=== PATIENT | female | born 1970 | race Caucasian/White ===

== ENCOUNTER → 2019-11-17 10:25 | Outpatient (CLI) | payer OTHER, SELFPAY ==
[2019-11-18 07:38] LABS: COVID19 Sendout Not Detected (Not Detect)
== END ==
PROVIDERS: PCP Specialist; Visit Provider Physician Assistant
DX: Z11.59 Encounter for screening for other viral diseases (principal)
CPT/HCPCS: 87635

== ENCOUNTER 2019-11-20 12:25 | Inpatient (IN) | payer OTHER, SELFPAY ==
[2019-11-12 11:49] VITALS: BMI 40.9
[2019-11-20] VITALS (15 sets, daily range): BP systolic 114–160; BP diastolic 53–93; PULSE 71–94; RESP 13–23; TEMP 36.1–36.4; O2SAT 86–99; BMI 40.9
--- NOTE | 2019-11-20 | PATH_ITS ---
[facility] Accession Number: [id number] . 01 Material submitted: . uterus - UTERUS, BILATERAL FALLOPIAN TUBES, L OVARY . 02 Diagnosis: Uterus, Bilateral Fallopian Tubes, Left Ovary, Abdominal Supracervical Hysterectomy, Bilateral Salpingectomy, and Left Oophorectomy (Morcellated Specimen, Weight 1383 grams): Proliferative endometrium; negative for glandular hyperplasia, cytologic atypia, or malignancy. Lower uterine segment with active inflammation and multiple benign Nabothian gland cysts; negative for glandular hyperplasia, cytologic atypia, or malignancy. Myometrium with multiple intramural leiomyomas (0.1-6.5 cm in greatest dimension); negative for cytologic atypia, increased mitotic activity, or necrosis. Uterine serosa with nonspecific adhesions. Attached fallopian tube (presumed left) with multiple benign paratubal cysts (1-5 mm in greatest dimension). Left ovary with a benign mature cystic teratoma / benign dermoid cyst (5.0 x 4.0 x 3.5 cm). Detached fallopian tube (presumed right) with no significant histomorphologic abnormality. [facility] 11/26/2019 1359 Local . 02 Electronically signed: . Matilda Coleman MD, Pathologist NPI- [id number] . 01 Gross description: . Received in formalin, labeled uterus, bilateral fallopian tubes, left ovary, and consists of a 1383 gram, supracervically resected uterus with attached left ovary and fallopian tube. The specimen measures 24 cm from superior fundus to lower uterine segment by 14.0 cm from cornu to cornu by 12.0 cm from anterior to posterior. The serosa is winter-pink and smooth. The specimen is bivalved to reveal a winter-pink herringbone endocervical mucosa with multiple cysts ranging from 0.1 to 0.3 cm. The endometrial cavity measures 6.0 x 0.3 cm and displays a winter-pink glistening endometrium measuring 0.1 cm in thickness. The myometrium is winter-pink and trabeculated, measuring up to 7.5 cm in thickness. There are multiple winter-white whorled leiomyomata ranging from 0.1 to 6.5 cm. There are focal areas of necrosis; however, no areas of hemorrhage or cystic degeneration. The left fallopian tube measures 4.0 cm in length by 0.5 cm in diameter and displays a pink-purple smooth serosa with multiple paratubal cysts ranging from 0.1 to 0.5 cm. Sectioning reveals a winter mucosa and a stellate lumen measuring 0.2 cm in diameter. The left ovary measures 6.0 x 5.0 x 4.5 cm. The external surface is winter and smooth. Sectioning reveals a 5.0 x 4.0 x 3.5 cm winter-pink smooth-walled cyst with no papillary excrescences. The cyst contains winter keratinaceous material. Remaining ovarian stroma is winter-pink with corpora albicantia. Also received is a detached fallopian tube measuring 4.5 cm in length by 0.5 cm in diameter with a winter-pink smooth serosa. Sectioning reveals a winter mucosa and a stellate lumen measuring 0.2 cm in diameter. Quality Controller sections are submitted. . A1: anterior lower uterine segment. A2: posterior lower uterine segment. A3: maintenance representative anterior endomyometrium. A4: maintenance representative posterior endomyometrium. A5-A10: maintenance representative leiomyomata. A11-A14: maintenance representative left ovarian cyst and ovarian parenchyma. A15: maintenance representative left fallopian tube, cross-sections and bisected fimbria. A16: maintenance representative right fallopian tube (detached) with central cross-sections and bisected fimbria. (EA:[id number]) /MRV 11/25/[address] [place] [address] . 02 Pathologist provided ICD-10: D25.9, D27.1 . 02 CPT . 862734 Performed at: 01 [facility] [address] [facility] [place], [place], [place] [id number] MD El Valdes MD Phone: [phone] Performed at: 02 [facility] [place] [address] [place] [id number] MD Leonor Ortiz MD Phone: [phone]
[2019-11-20] MEDS: LACTATED RINGERS 1,000 ML 42 ML IV (13:01)
[2019-11-20] MEDS: SCOPOLAMINE 1 PATCH TOP (13:04)
[2019-11-20] MEDS: ACETAMINOPHEN 325 MG TABLET 975 MG PO (13:04)
--- NOTE | 2019-11-20 13:31 | PM.PREOP ---
Pre-operative Note COVID-19 COVID-19 status: Negative Result date/Date tested (Pos, Neg/Pending): 11/17/19 Interval Note History & Physical reviewed/Exam performed by Physician: Yes Changes to H&P: No
[2019-11-20] MEDS: CEFAZOLIN VIAL 3 GM in SODIUM CHLORIDE 0.9% 100 ML 200 ML IV (13:33)
--- NOTE | 2019-11-20 14:19 | SUR.OPER ---
Lithotomy on padded OR bed, head on pillow, arms secured on padded arm boards at <90 degrees abduction. Legs secured in padded yellow fins stirrups.
[2019-11-20] MEDS: fentaNYL 100 MCG/2 ML INJ IV ×4 (16:15→16:40)
--- NOTE | 2019-11-20 16:16 | P.OP_ITS ---
Operative Date/Time/Diagnoses Date of procedure: 11/20/19 Time of procedure: 16:16 Pre-op diagnosis: Menorrhagia from large uterine fibroids, urinary incontinence Post-op diagnosis: same Procedure & Clinicians Procedure: Abdominal supracervical hysterectomy with right salpingectomy and left salpingo oophorectomy, Nunez bladder suspention Same procedure as scheduled: Yes Indications: Menorrhagia a from large uterine fibroids and stress urinary incontinence Surgeon: Ashly Swenson Jacquard Plate Maker: Sirisha Edwarsd Click Yes if Unassisted: No Anesthesia Type: General Operative Notes Findings: Large uterine fibroids, enlarged left ovary, normal appendix, normal bowel surface, normal palpable upper abdomen, hypermobile urethra with first- degree cystocele Closure Type: primary Specimen(s): other (Uterus above the level of the bladder, right fallopian tube, left tube and ovary) Applied: catheter (Manrique) Estimated Blood Loss (mL): 400 Blood products transfused: none Procedure in detail: Patient was brought to the operating room where she underwent general anesthesia and was placed in [facility] in a supine position. She was prepped and draped in the usual sterile fashion. Patient had warming with Jose Hugger, 3 g of Ancef were in prior to beginning the case. Pulsatile stockings were in place and functional. A Manrique catheter was placed. A check system was reviewed with the staff in the room prior to beginning the case. A vertical skin incision was made from the pubic symphysis to just below the umbilicus. The incision was carried down to the fascial layer with the Bovie. Bleeding was controlled with Bovie. The fascia was incised with the scalpel all. The rectus muscles were in the midline and the peritoneum was entered sharply with no damage to internal structures. The peritoneal incision was extended superiorly and inferiorly. The large Reynold retractor was placed. The LigaSure was used to cauterize and cut the right needs a salpinx along removal of the right tube. The utero-ovarian ligament and round ligaments were cauterized and cut. Sequential bites were taken down the broad ligament hugging the uterus. The infundibulopelvic ligament was cauter ized and cut. Sequential bites taken of the broad ligament hugging the ovary. Bites were taken down the broad ligament unti the uterine artery was cauterized and cut. Bladder flap was developed anteriorly by incising the perineum. The bladder was pushed away from the cervix. Bovie was used to amputate the uterus at the level of the internal cervical os. Bleeding was controlled with 0 Vicryl suture. The Bovie was used to cauterize in the endocervical canal. Adequate hemostasis was noted. The fascia of the cervix was sutured front to back with [id number] 0 Vicryl sutures. The abdomen was irrigated. Adequate hemostasis was noted. The perineum was repaired with 3 0 Vicryl suture. Dissection was undertaken in the retropubic space identifying the Rigo's ligaments on both sides. The bladder was filled with 200 cc of methylene blue in stained saline. With the all around gear machine operator's hands in the vagina 0 Prolene sutures were placed lateral to the urethral vesical junction, two on each side approximately 1 cm per. There was no release of stained saline confirming the sutures were not placed in the bladder. The sutures were placed through the Rigo's ligament on each side approximately 1 cm apart. The sutures were tied to support the urethra without undue pressure. Adequate hemostasis was noted. #1 looped Maxon was used to close the fascial layer in a running suture from the umbilicus down. The incision was irrigated and the adipose layer was closed with 3 0 Vicryl interrupted sutures. Skin was closed with 4 0 Vicryl suture in a running stitch. Steri-Strips were placed followed by an Aquacel bandage. Patient went to the recovery room in good condition. Counts of instruments and sponges were correct. Complications: none Post-operative Condition: stable Disposition: Acute Care Plan for aftercare: Routine post hysterectomy. Monitor for bleeding. Advanced diet as tolerated.
[2019-11-20] MEDS: LORazepam 2 MG/ML INJ 0.5 MG IV (16:54)
--- NOTE | 2019-11-20 17:00 | SUR.PHASEI ---
Dr. Swenson notified patient c/o rectal pain, Lorazepam ordered and given.
--- NOTE | 2019-11-20 17:10 | SUR.PHASEI ---
report called to Joan. Scant shadow drainage to abdominal dressing
--- NOTE | 2019-11-20 17:36 | SUR.PHASEI ---
Patient transferred to the floor on 2L o2, with belongings bags x2. IV saline locked. Scant shadow drainage to abd dressing. Michelle-pad CDI. VS stable. Report given to DEV Franco.
[2019-11-20] MEDS: LACTATED RINGERS 1,000 ML 100 ML IV ×2 (18:16→20:23)
[2019-11-20] MEDS: DOCUSATE 250 MG CAPSULE PO (20:20)
[2019-11-20] MEDS: OXYCODONE IR 10 MG TABLET PO ×2 (20:20→23:39)
--- NOTE | 2019-11-20 23:28 | PC.NURSE ---
admit/evening shift note- Patient arrived to room via bed from PACU at 1720. PAtient alert and oreinted and able to makie needs known to staff. admit questions done, medications list reviewed, physical assessment and skin check completed. patient oriented to bed and bed controls, room, lights, phone,menu, and call schwartz/tv remote. abdominal midline line dressing with scant shadow drainage noted. Patient using blanket to gaurd abdomin. PRN Oxycodone given for complaints of pain at 7/10. soe1ajez tolerated with positve results reported. Manrique in patent and set to gravity to drain. safety measures in place. Patient agress to call for assistance. Call schwartz and phone within reach. will continue to monitor.
[2019-11-21] VITALS (12 sets, daily range): BP systolic 100–140; BP diastolic 67–88; PULSE 68–91; RESP 15–19; TEMP 36.1–37.2; O2SAT 86–97
[2019-11-21] MEDS: LACTATED RINGERS 1,000 ML 100 ML IV (04:40)
[2019-11-21 05:11] LABS: Basophils Absolute Auto 0 /uL (0-100); Basophils Percent Auto 0.3 % (0-2); Eosinophils Absolute Auto 0 /uL (0-450); Hematocrit 32.5 % (36-46); Hemoglobin 10.2 g/dL (12.0-16.0); Lymphocytes Absolute Auto 1100 /uL (1100-4500); Lymphocytes Percent Auto 7.2 % (25-40); Mean Corpuscular HGB Conc 31.3 % (30-36); Mean Corpuscular Hemoglobin 25.7 PG (26-34); Mean Corpuscular Volume 82.2 fL (80-100); Monocytes Absolute Auto 800 /uL (0-900); Monocytes Percent Auto 5.6 % (3-14); Neutrophils Absolute Auto 12700 /uL (1500-7000); Neutrophils Percent Auto 86.9 % (50-75); Platelet Count 396 X10^3/uL (150-400); Red Blood Cell Count 3.96 X10^6/uL (4.0-5.2); White Blood Cell Count 14.6 X10^3/uL (4.5-11.0)
[2019-11-21 05:12] LABS: Add Manual Diff / Slide Review SLIDE REVIEW
[2019-11-21] MEDS: LEVOTHYROXINE 100 MCG TABLET PO (05:13)
[2019-11-21 05:27] LABS: Anisocytosis 2+
--- NOTE | 2019-11-21 05:49 | PC.NURSE ---
Addendum entered by Dixie Mandujano R.N. 11/21/19 05:54: Patient continues to use ice pack to abdomen for pain relief as well. Original Note: weight shifter note: Patient able to sleep well throughout shift. Patient with midline abdominal incision, remains dry, intact with small spot distally of sanguineous drainage. Patient placed on 2L NC throughout the shift due to slight desaturation (86% on RA, up to 97% on 2L, then titrated down to 1L NC). Patient requesting 1 dose of PRN Percolone for pain at 2339. Manrique cath remains in place with great urine output. Patient able to reposition independently in bed, and currently is resting in bed with no distress noted. IV fluids remain running.
[2019-11-21] MEDS: DOCUSATE 250 MG CAPSULE PO ×2 (07:43→20:59)
[2019-11-21] MEDS: CHLORTHALIDONE 25 MG TABLET 50 MG PO (07:44)
[2019-11-21] MEDS: KETOROLAC 30 MG/ML VIAL IV ×3 (07:44→20:59)
--- NOTE | 2019-11-21 09:32 | PM.PN.1 ---
Subjective Subjective Date Patient Seen: 11/21/19 Time Patient Seen: 09:33 Interval history: Postoperative day 1 Abdominal supracervical hysterectomy with bladder suspension. Patient feels that she is doing very well. Pain is under control. She ambulated in the hallway today. No nausea. She has not passed gas yet. Exam Vital Signs (past 8 hours): - 11/21/19 02:18 11/21/19 02:20 11/21/19 04:53 Temperature 97 F L Pulse Rate 91 H Respiratory Rate 15 Blood Pressure 137/83 Pulse Oximetry 86 L 96 97 11/21/19 07:00 11/21/19 08:00 Temperature 98.7 F Pulse Rate 75 Respiratory Rate 19 Blood Pressure 133/82 Pulse Oximetry 97 97 Oxygen Delivery Method Room Air Oxygen Flow Rate 0 Narrative Exam Narrative: Patient's abdomen is soft, nontender. Dressing is clean, dry, intact. Extremities without edema and nontender. Objective Labs Result Diagrams: 11/21/19 04:50 Labs: Laboratory Results - last 24 hr 11/21/19 04:50 WBC 14.6 H RBC 3.96 L Hgb 10.2 L Hct 32.5 L MCV 82.2 MCH 25.7 L MCHC 31.3 RDW 20.0 H Plt Count 396 Neut % (Auto) 86.9 H Lymph % (Auto) 7.2 L [place] % (Auto) 5.6 Eos % (Auto) 0.0 L Baso % (Auto) 0.3 Neut # (Auto) 48737 H Lymph # (Auto) 1100 [place] # (Auto) 800 Eos # (Auto) 0 Baso # (Auto) 0 RBC Morphology See below Anisocytosis 2+ H Assessment & Plan Assessment and plan (1) History of Nunez colposuspension: Status: Acute (2) Status post abdominal supracervical subtotal hysterectomy: Status: Acute Assessment & Plan narrative: Will remove Manrique catheter and check for postvoid residual. Continue ambulation. Will evaluate for discharge later today. Quality VTE Deep Vein Thrombosis/Pulmonary Embolism Present on Admission: No
--- NOTE | 2019-11-21 12:40 | CM.DANOTE ---
Discharge Planning/Care Management DCP: assessment: case received, EMR reviewed and met with pt. Introduced self and role. Pt is a 49 year old female who admitted yesterday for a scheduled gynecological procedure: Hysterectomy with bladder suspension. Payer: Derick KENYON Surgeon: Dr. Kori Swenson PCP: DR. Ja Jenkins: [facility] Pt has been mobilizing in the [place]. Dr. Swenson stated she would be checking in on pt again later today and that she MAY be able to d/c if she is doing well. Pt confirms that she lives with her dougie Florian and he will be picking her up at d/c. Will follow prn. Anticipate home as above when stable for same. CM Discharge Assessment Start: 11/21/19 12:39 Freq: Status: Active Protocol: Document 11/21/19 12:39 ITV (Rec: 11/21/19 12:40 ITV [id number]) Discharge Planning Assessment Advance Directives? No Advance Directives on File No History Provided By Patient,Medical Record Prior Living Arrangements Mobile home Household Members significant other Comment Anival/dougie Independent with ADL's Yes Is patient alert and oriented? Yes Review Status In Process Pre-Anesthesia Assessment Start: 11/12/19 11:49 Freq: Status: Complete Protocol: Document 11/12/19 11:49 CAB (Rec: 11/12/19 12:36 CAB [id number]) Pre-Anesthesia Assessment Preferred Name Prisca or Elin Patient Information Reviewed Via Phone Assessment Assessment Completed With Patient Comment COVID screen @ 11/17/19 Primary Care Provider Ja Jenkins Seen Specialist in Last 12 Months Yes Specialist Seen Stone Driller Primary Language Latvian Radio Antenna Installer Required No Height 165.1 cm Weight 111.584 kg Body Mass Index (BMI) 40.9 Hearing Ability Normal Visual Impairment No Limitations Visual Assist None Dentition Type Teeth, Natural Present,Teeth, Broken,Teeth, Missing Barriers to Learning Emotional Other Aids No Hx Anesthesia Reactions No: Only surgery was at 8 months of age Hx Family Anesthesia Reaction No Hx Malignant Hyperthermia No Hx Blood Transfusions No Anesthesia Review Requested No alcohol intake current alcohol intake frequency holidays/special occasions only Smoking Status Former smoker Tobacco type cigarettes how long ago did patient quit smoking Quit 2016 Substance Use Type does not use Pain Present Pain Reported Comment Right hip, lower back Musculoskeletal Symptoms Abnormal Gait,Back Pain, Difficulty Walking,Joint Pain, Muscle Weakness History of Falling (Recent or History of Yes ) Patient is completely paralyzed or No completely immobile Mental Status Oriented to own ability Is patient on oxygen? No Does patient have MON/SOB Yes: With anemia Hx Sleep Apnea No Currently Taking a Beta Ambreen No Can You Climb a Flight of Stairs Without Yes SOB Hx Chest Pain Yes: Associated with panic attacks Hx SOB Yes: With anemia Hx Syncope or Dizziness Yes: Dizziness w/anemia Anti-Coagulant Therapy No Has a Congressional Aide No Cardiac Testing No Hx Pacemaker/ICD No Pacemaker Rep Required? No Cardiac Clearance Received Not Applicable Diet Type At Home Regular dysphagia No Gastrointestinal Symptoms Constipation Bladder Pattern Frequency,Incontinent,Urgency Urinary Catheter Present No Hx Urinary Self Catheterization No Diabetes No Patient No Lactating No Hx Drug Resistant Organism No Presence of External or Internal Medical No Devices Have you had any close contact with No someone diagnosed with COVID-19? Marital Status Lives With significant other Prior Living Arrangements Mobile home Support System Significant Other Does the Patient Have Assistance After Yes Surgery Patient Discharge Plan Description Return Home Comment Pt advised 3 day length of stay per surgeon Feels Safe in Current Environment Yes Been Physically Hurt or Threatened By a No Person in Current Environment Do you have thoughts of harming yourself None or others? Are you currently considering suicide? No Do you have a plan to hurt yourself or No Plan others? Do You Have Any Spiritual Beliefs That No May Affect Your HC Choices? Do You Have Any Cultural Practices That No May Affect Your HC Choices? Comment Sabianist Who Can We Speak to About Patient's Care Family, friends Identifying Code for Release of Patient Declines to issue Information Health Care Proxy/Next of Kin Anival (S.O.) Health Care Proxy or [phone] Emergency Contact Name Anival (S.O.) Emergency Contact or [phone] Advance Directives? No Power of Multi Share Program Coordinator No PAC Instructions Do not shave/clip surgical site,No ETOH/petroleum product on skin DOS,NPO,Pre-surgical wash,Sturdy shoes/comfortable clothes,Do not bring valuables and remove jewelry
[2019-11-21] MEDS: OXYCODONE IR 10 MG TABLET PO (13:12)
--- NOTE | 2019-11-21 13:28 | PC.NURSE ---
Addendum entered by Renee Sandoval R.N. 11/21/19 15:18: DR MADDEN NOTIFIED HAD 500CC'S VOID WITH 10CC'S PVR . OKAY TO SL IV. Original Note: YA DC'D AT 0945. 250CC'S URINE EMPTIED FROM YA PRIOR TO DC. PAIN WELL CONTROLLED W/ TORADOL THIS AM, AND NOW WITH OXYCODONE TORADOL NOT YET DUE. FACE FLUSHED. PATIENT REPORTS FLUSHED FREQ AT HOME, NOT PAINFUL. DR. MADDEN NOTIFIED OF PVR 196 AFTER 150CC VOID AND SOME URINE THAT MISSED THE HAT. DR. MADDEN WOULD LIKE US TO CONTINUE TO MONITOR VOIDING PATTERN AND POST-VOID RESIDUAL.
--- NOTE | 2019-11-21 15:08 | P.PN_ITS ---
Subjective Subjective Date Patient Seen: 11/21/19 Time Patient Seen: 15:08 Interval history: Patient is postoperative day number 1. She is ambulatory. She passed her bladder trial. She does not have good return of bowel function yet. She denies nausea. Exam Vital Signs (past 8 hours): - 11/21/19 08:00 11/21/19 12:00 Temperature 98.7 F 98.8 F Pulse Rate 75 76 Respiratory Rate 19 15 Blood Pressure 133/82 132/75 Pulse Oximetry 97 96 Oxygen Delivery Method Room Air Oxygen Flow Rate 0 Objective Labs Result Diagrams: 11/21/19 04:50 Labs: Laboratory Results - last 24 hr 11/21/19 04:50 WBC 14.6 H RBC 3.96 L Hgb 10.2 L Hct 32.5 L MCV 82.2 MCH 25.7 L MCHC 31.3 RDW 20.0 H Plt Count 396 Neut % (Auto) 86.9 H Lymph % (Auto) 7.2 L [place] % (Auto) 5.6 Eos % (Auto) 0.0 L Baso % (Auto) 0.3 Neut # (Auto) 98216 H Lymph # (Auto) 1100 [place] # (Auto) 800 Eos # (Auto) 0 Baso # (Auto) 0 RBC Morphology See below Anisocytosis 2+ H Assessment & Plan Assessment and plan (1) S/P abdominal hysterectomy and left salpingo-oophorectomy: Status: Acute Assessment & Plan narrative: Patient passed her bladder trial after removing her catheter. Likely home tomorrow if she has improved bowel function. Quality VTE Deep Vein Thrombosis/Pulmonary Embolism Present on Admission: No
[2019-11-22] MEDS: OXYCODONE IR 10 MG TABLET PO (02:11)
[2019-11-22] MEDS: KETOROLAC 30 MG/ML VIAL IV (04:02)
[2019-11-22 04:22] VITALS: BP 133/79; PULSE 63; RESP 18; TEMP 36.4; O2SAT 95
[2019-11-22] MEDS: LEVOTHYROXINE 100 MCG TABLET PO (05:06)
--- NOTE | 2019-11-22 05:41 | PC.NURSE ---
security shift supervisor note: Patient slept well throughout the shift, getting up and ambulated to restroom with no distress and SBA. Patient medicated with PRN Oxycodone and Toradol (4th out of 4th dose given). VSS, remains on RA. Patient currently resting in bed. Abdominal dressing has old, shadowing noted on Aquacel dressing but remains intact.
[2019-11-22 08:00] VITALS: BP 136/78; PULSE 69; RESP 16; TEMP 36.3; O2SAT 95
[2019-11-22] MEDS: CHLORTHALIDONE 25 MG TABLET 50 MG PO (09:28)
[2019-11-22] MEDS: DOCUSATE 250 MG CAPSULE PO (09:28)
--- NOTE | 2019-11-22 09:54 | PM.DS.1 ---
History of Present Illness History of Present Illness Date Patient Seen: 11/22/19 Time Patient Seen: 09:54 Date of Onset of Symptoms: 11/20/19 Chief complaint: INPT Narrative: Patient underwent an abdominal supracervical hysterectomy with right salpingectomy and left salpingo-oophorectomy with Nunez retropubic bladder suspension on 11/20/2019 Discharge Providers Provider Date of admission: 11/20/19 12:25 Discharge Date: 11/22/19 Primary care physician: Ashly Swenson MD Discharge provider: Ashly Swenson MD Summary Hospital Course Discharge Diagnosis: Menorrhagia from large uterine fibroids and urinary incontinence , left ovarian mass Hospital Course: Patient underwent a abdominal supracervical hysterectomy with right salpingectomy and left salpingo oophorectomy with Nunez bladder suspension. Patient is doing well. She has no nausea. She is passing gas. She is ambulatory. She is urinating without difficulty. Pain is under control. Status at Discharge Cognitive/behavioral status at discharge: oriented Functional status at discharge: independent ambulation Overall status at discharge: patient is progressing back to baseline Time Spent with Patient Time spent: Less than 30 minutes Exam Vital Signs (past 8 hours): - 11/22/19 04:22 11/22/19 08:00 Temperature 97.6 F 97.3 F L Pulse Rate 63 69 Respiratory Rate 18 16 Blood Pressure 133/79 136/78 Pulse Oximetry 95 95 Oxygen Delivery Method Room Air Oxygen Flow Rate 0 Narrative Exam Narrative: Abdomen is soft, nontender. Dressing is clean, dry, intact. Extremities without edema and nontender. No vaginal bleeding. Objective Labs Result Diagrams: 11/21/19 04:50 Discharge Assessment & Plan Assessment and Plan Assessment: Patient with menorrhagia and large uterine fibroids, left ovarian cysts, and urinary incontinence status post abdominal supracervical hysterectomy with right salpingectomy and left salpingo oophorectomy with retropubic bladder suspension doing well Plan of Treatment: Patient was discharged home to be followed up in 1 week for removal of Aquacel dressing. Precautions reviewed with the patient. Discharge Plan Discharge Plan Patient Disposition: Home Discharge orders & Medications Prescriptions: Continued chlorthalidone 50 mg tablet 50 mg PO DAILY RF: 0 levothyroxine 100 mcg capsule 100 mcg PO DAILY RF: 0 alprazolam [Xanax] 0.5 mg tablet 0.5 mg PO TID PRN (Reason: anxiety) RF: 0 oxycodone-acetaminophen 5-325 mg tablet 2 tab PO Q4-6H PRN (Reason: pain) Qty: 40 RF: 0 ascorbic acid (vitamin C) [Vitamin C] 1,000 mg Tablet 1,000 mg PO DAILY RF: 0 ferrous sulfate 325 mg (65 mg iron) Tablet 750 mg PO DAILY RF: 0 naproxen sodium 220 mg Capsule 220 mg PO SEEINSTR RF: 0 Follow up/Referrals: Ashly Swenson MD [Primary Care Provider] - 1 Week Diet/Activity/Treatments Diet: Regular Activity: Do not lift over 20 lb for 6 weeks Skin/Wound/Dressing Care Report to your healthcare provider any signs of infection, such as:: chills, fever and increased pain Dressing: Leave Aquacel dressing on until postop appointment Visit Report/Discharge Packet Instructions: DI for Hysterectomy Stand Alone Forms: Surgery Discharge Discharge Data Primary Care Provider: Ashly Swenson Quality VTE Deep Vein Thrombosis/Pulmonary Embolism Present on Admission: No
--- NOTE | 2019-11-22 10:02 | PC.NURSE ---
Patient is going to be discharged home today around 1130. She has an aquacel to her lower abdomen, and lap sites below aquacel that are cdi with small amount of ss drainage on both dressing and steri strips. Patient denies any nausea and ate well at breakfast this morning. Sitting up in chair and moving well on her own.
== END 2019-11-22 11:45 | disposition home or self-care (01) | DRG 743 ==
PROVIDERS: Admitting Provider Specialist; PCP Specialist; Referring Provider Specialist; Visit Provider Specialist
PROC: 0UT90ZZ Resection of Uterus, Open Approach (ICD-10-PCS; CPT 58150; principal; 2019-11-20 13:30)
DX: D25.9 Leiomyoma of uterus, unspecified (principal); N36.41 Hypermobility of urethra; N39.3 Stress incontinence (female) (male); N92.0 Excessive and frequent menstruation with regular cycle; N81.10 Cystocele, unspecified; F41.9 Anxiety disorder, unspecified; I10 Essential (primary) hypertension; E03.9 Hypothyroidism, unspecified; F43.10 Post-traumatic stress disorder, unspecified; Z87.891 Personal history of nicotine dependence
CPT/HCPCS: 36415; 57288; 58180; 85025; J0330; J0690; J1100; J1885; J2060; J2250; J2405; J2704; J3010

== ENCOUNTER → 2020-02-16 08:38 | Outpatient (CLI) | payer OTHER, SELFPAY ==
[2019-11-20 12:37] VITALS: BMI 40.9
[2020-02-16 09:38] LABS: COVID19 -Nasal RAPID Negative (Negative)
== END ==
PROVIDERS: PCP Family Medicine; Visit Provider Nurse Practitioner Family
DX: Z20.828 Contact with and (suspected) exposure to other viral communicable diseases (principal)
CPT/HCPCS: 87635

== ENCOUNTER 2020-02-18 06:12 | Day surgery (SDC) | payer OTHER, SELFPAY ==
[2019-11-20 12:37] VITALS: BMI 40.9
[2020-02-11 15:19] VITALS: BMI 39.9
[2020-02-18] VITALS (22 sets, daily range): BP systolic 81–144; BP diastolic 38–92; PULSE 50–81; RESP 8–20; TEMP 35.6–37.2; O2SAT 84–99; BMI 38.7
--- NOTE | 2020-02-18 06:45 | DI.RAD.S_ITS ---
PROCEDURE: XR PELVIS 1-2V INDICATIONS: post op SCAR TECHNIQUE: Single view(s) of the pelvis acquired. COMPARISON: None. FINDINGS: Bones: Expected postoperative alignment of right hip arthroplasty. Severe left hip joint degeneration incidentally noted. No fracture. Soft tissues: Visualized bowel gas pattern is normal. No suspicious soft tissue calcifications. IMPRESSION: Expected postoperative alignment Dictated by: Danny Barclay M.D. on 02/18/2020 at 13:10 Approved by: Danny Barclay M.D. on 02/18/2020 at 13:11
[2020-02-18] MEDS: LACTATED RINGERS 1,000 ML 42 ML IV ×2 (07:00→08:50)
[2020-02-18] MEDS: SCOPOLAMINE 1 PATCH TOP (07:05)
[2020-02-18] MEDS: ACETAMINOPHEN 325 MG TABLET 975 MG PO (07:05)
[2020-02-18] MEDS: PREGABALIN 75 MG CAPSULE PO (07:05)
[2020-02-18] MEDS: CELECOXIB 200 MG CAPSULE PO (07:20)
[2020-02-18] MEDS: CLINDAMYCIN 900 MG/50 ML PIGGYBACK 50 MG IV (07:51)
--- NOTE | 2020-02-18 07:54 | PM.PREOP ---
Pre-operative Note COVID-19 COVID-19 status: Positive Result date/Date tested (Pos, Neg/Pending): 02/16/20 Interval Note History & Physical reviewed/Exam performed by Physician: Yes Changes to H&P: No
[2020-02-18] MEDS: TRANEXAMIC ACID 1,000 MG VIAL 2000 MG INJ ×2 (08:17→09:05)
--- NOTE | 2020-02-18 08:24 | SUR.OPER ---
Lateral on padded OR bed. Gel axillary roll. Arms secured on padded armboard with pillow supporting top arm. Padded hip positioner braces x4 - anterior and posterior chest and pelvis. Additional gel pad used anterior pelvis. Gel pad under bottom leg from knee to foot and secured with tape over sheet.
[2020-02-18] MEDS: MORPHINE 4 MG/ML INJ INJ (08:29)
[2020-02-18] MEDS: KETOROLAC 30 MG/ML VIAL IV (08:29)
[2020-02-18] MEDS: ROPIVACAINE 0.5% PF 5 MG/ML 20ML VIAL 60 ML INJ (08:30)
--- NOTE | 2020-02-18 09:27 | P.OP_ITS ---
Operative Date/Time/Diagnoses Date of procedure: 02/18/20 Time of procedure: 09:27 Pre-op diagnosis: Right hip degenerative joint disease Post-op diagnosis: same Procedure & Clinicians Procedure: Right total hip arthroplasty (CPT code 62333 with infertility medical assistant) Same procedure as scheduled: Yes Indications: Patient is an 50-year-old female with severe right hip DJD. The patient has pain with activities and at rest, limited ambulation and activity tolerance, difficulties with ADLs, and failure of conservative treatment. We have discussed the nature of condition, treatment options, risks and benefits, and patient elects to proceed with total hip arthroplasty and gives informed consent. Surgeon: Girish Garcia Molding Plasterer: Bhavesh Buck Anesthesia Type: General and Spinal Operative Notes Closure Type: primary Specimen(s): none sent Prosthetic devices, grafts, tissues, transplants, or devices: Acetabulum: Mishra and Nephew R3 acetabular component size 52 mm Femoral component: Mishra [employer] Nephew Anthology stem size 4 with standard offset Femoral head: 36 mm + 0 Oxinium Estimated Blood Loss (mL): 200 Procedure in detail: After satisfaction induction of anesthetic, and administration of IV antibiotics, the patient was positioned in the lateral decubitus position with all bony prominences well padded and pelvic position secured using a hip quality assurance coordinator positioning device. Right hip and lower extremity prepped and draped in the usual sterile fashion, 1st dose of intravenous tr anexamic acid was administered, then a longitudinal incision was created centered over the greater trochanter and carried sharply through the skin and subcutaneous tissues down to the fascia milagro which was divided longitudinally and retracted with a Charnley retractor. External rotators visualize, cut, tagged, and retracted posteriorly, then the capsule was cut in a T-type fashion with the corners tagged and retracted. Hip was dislocated and femoral neck cut made according to preoperative templating. Acetabular retractors then placed, and the acetabular labrum and osteophytes were excised. The acetabulum was then sequentially reamed to 51 mm with an excellent circumferential ream and fit with the trial. The trial component was removed and a permanent size 52 mm Mishra and Nephew R3 acetabular component was selected, positioned, and impacted with satisfactory position and fixation achieved. Permanent liner was then inserted with the elevated lip directed posteriorly. Soft tissue then removed off the lateral femoral neck in the lateral neck was entered using a box osteotome. T- handled reamers placed down the canal followed by sequential broaching to 4 with the final broach left in place for trial reduction which demonstrated excellent leg length, range of motion, and stability characteristics with a 36 mm +0 trial ball. The trial and broach were removed, and a permanent size 4 Mishra [employer] Nephew Anthology stem was selected and inserted with excellent position and fixation achieved. Another trial reduction yielded the above characteristics so the trial ball was exchanged for a permanent 36 mm +0 Oxinium ball. The hip was irrigated and reduced and excellent leg length range of motion and stability characteristics were achieved and maintained. Periarticular tissues were inf iltrated with ropivacaine, morphine, and Toradol. The hip was copiously irrigated, and the capsule repaired with #2 Ethibond, and the piriformis was repaired back to the greater trochanter with the same. Fascia milagro closed with interrupted #1 Ethibond sutures, and the subcutaneous tissues were closed in 2 layers of 0 Vicryl and 2 0 Vicryl. Skin was closed with ZipLine skin closure and sterile dressings applied. Second dose of tranexamic acid was administered intravenously, and the anesthetic was terminated. Complications: none Post-operative Condition: stable Disposition: PACU Plan for aftercare: Patient will be admitted to the acute care [facility], and anticipate discharge on postop day 1 with follow-up in office in 10-14 days. Outpatient physical therapy will be arranged and patient will continue to observe posterior hip precautions. Patient will continue use of aspirin for DVT prophylaxis postop.
[2020-02-18] MEDS: ONDANSETRON 4 MG/2 ML INJ IV ×2 (09:49→11:41)
[2020-02-18] MEDS: ALPRAZolam 0.5 MG TABLET PO (11:41)
[2020-02-18] MEDS: LACTATED RINGERS 1,000 ML 100 ML IV ×2 (12:54→22:54)
[2020-02-18] MEDS: METOCLOPRAMIDE 10 MG/2 ML INJ IV (12:54)
[2020-02-18] MEDS: diphenhydrAMINE 50 MG/ML VIAL 25 MG IV (13:15)
--- NOTE | 2020-02-18 15:10 | PT-IP ANOTE ---
PT order received. Pt arrived AC unit at 1030 am. Attempted to see pt but she was very drowsy and BP at 94/48 in bed. Pt stated she is not ready for PT yet. Will eval her tomorrow morning.
--- NOTE | 2020-02-18 16:00 | PC.NURSE ---
Ortho: Nausea after arrival from pacu. Zofran given. Had a 600ml emesis. Is on a cont pulse ox, sats dropped down to 87% and was placed on )2 at 2L with sats at 96%. MD Garcia called and made aware of nausea and need for O2. See new orders. Also itchy from epidural. Received reglan, benadryl and pt was more comfortable and less itchy and she was able to doze off. Pulse ox remains at 95% or greater while dozing.
[2020-02-18] MEDS: hydrOXYzine pamoate 25 MG CAPSULE PO (16:18)
[2020-02-18] MEDS: HYDROCODONE/ACET 5/325 TABLET 2 TAB PO (19:36)
[2020-02-18] MEDS: ACETAMINOPHEN 325 MG TABLET 650 MG PO (21:38)
[2020-02-18] MEDS: DOCUSATE 100 MG CAPSULE PO (21:38)
[2020-02-18] MEDS: ASPIRIN EC 81 MG TABLET PO (21:38)
[2020-02-18] MEDS: diphenhydrAMINE 25 MG TABLET PO (22:39)
[2020-02-19] MEDS: OXYCODONE IR 5 MG TABLET PO ×2 (02:25→17:13)
[2020-02-19] MEDS: hydrOXYzine pamoate 25 MG CAPSULE PO (02:45)
[2020-02-19] MEDS: LEVOTHYROXINE 100 MCG TABLET PO (06:00)
[2020-02-19] MEDS: HYDROCODONE/ACET 5/325 TABLET 2 TAB PO ×2 (06:10→09:49)
[2020-02-19 06:30] VITALS: BP 118/58; PULSE 76; RESP 18; TEMP 36.4; O2SAT 96
[2020-02-19 06:40] LABS: Hematocrit 34.7 % (36-46); Hemoglobin 11.5 g/dL (12.0-16.0)
--- NOTE | 2020-02-19 07:36 | P.PN_ITS ---
Subjective Subjective Date Patient Seen: 02/19/20 Time Patient Seen: 07:36 Interval history: POD #1 s/p Right SCAR with Dr. Garcia. Her pain is well controlled with Oxycodone. She has her prescriptions at home already. She has mobilized in her room. Exam Vital Signs (past 8 hours): - 02/18/20 23:39 02/19/20 06:30 Temperature 97.8 F 97.6 F Pulse Rate 66 76 Respiratory Rate 18 18 Blood Pressure 133/71 118/58 L Pulse Oximetry 97 96 Oxygen Delivery Method Nasal Cannula Oxygen Flow Rate 0 Narrative Exam Narrative: Patient lying in bed in NAD. She is alert and oriented X3. Calves are soft, compressible, and nontender bilaterally. SILT throughout BLEs. SCDs on and functioning. DP pulses symmetrical. She is able to actively dorsiflex and plantarflex. Objective Labs Result Diagrams: 02/19/20 06:26 Labs: Laboratory Results - last 24 hr 02/19/20 06:26 Hgb 11.5 L Hct 34.7 L PFSH Medical History Allergies Anxiety Arthritis Chicken pox Depression HTN (hypertension) Hypothyroid Osteoarthritis Palpitations PTSD (post-traumatic stress disorder) Pyloric stenosis, congenital Right hip pain Surgical History History of hysterectomy (11/20/19) History of pyloric stenosis as a child S/P abdominal hysterectomy and left salpingo-oophorectomy Family History Father Cancer Diabetes mellitus History of heart disease Hyperlipidemia Hypertension Stroke Mother Cancer Social History household members: significant other Smoking Status: Former smoker alcohol intake: current Assessment & Plan Post-op Postoperative Procedures: Procedures Operation Date: 02/18/20 07:45 Actual Procedures Side Surgeon p Total Hip Arthroplasty Right Girish Garcia MD Patient will mobilize with PT today. Posterior hip precautions. ASA for VTE prophylaxis. Continue current pain control. If she is mobilizing safely with a dequate pain control she can DC home today.
[2020-02-19 08:48] VITALS: BP 103/64; PULSE 69; RESP 16; TEMP 36.9; O2SAT 92
[2020-02-19] MEDS: ACETAMINOPHEN 325 MG TABLET 650 MG PO ×2 (09:46→14:46)
[2020-02-19] MEDS: ASPIRIN EC 81 MG TABLET PO (09:47)
[2020-02-19] MEDS: DOCUSATE 100 MG CAPSULE PO (09:47)
[2020-02-19] MEDS: ASCORBIC ACID 500 MG TABLET 1000 MG PO (09:47)
[2020-02-19] MEDS: NAPROXEN 250 MG TABLET 500 MG PO (09:47)
[2020-02-19] MEDS: SODIUM CHLORIDE 0.9% FLUSH 10 ML IV (09:48)
[2020-02-19] MEDS: FERROUS SULFATE 325 MG TABLET 750 MG PO (09:48)
[2020-02-19] MEDS: CHLORTHALIDONE 25 MG TABLET 50 MG PO (09:49)
[2020-02-19 09:53] VITALS: BP 139/83; PULSE 80
[2020-02-19] MEDS: METOPROLOL ER 25 MG TABLET PO (09:53)
--- NOTE | 2020-02-19 10:25 | PT.IIE ---
Current Diagnoses Unilateral primary osteoarthritis, right hip (02/18/20) Surgery Performed Operation Date: 02/18/20 07:45 Actual Procedures p Total Hip Arthroplasty(Right) - Girish Garcia MD Surgical History (Last Reviewed 02/19/20 @ 10:04 by Jenni Rain PA-C) History of hysterectomy (11/20/19) History of pyloric stenosis as a child S/P abdominal hysterectomy and left salpingo-oophorectomy Medical History (Last Reviewed 02/19/20 @ 10:04 by Jenni Rain PA-C) Allergies Anxiety Arthritis Chicken pox Depression HTN (hypertension) Hypothyroid Osteoarthritis Palpitations PTSD (post-traumatic stress disorder) Pyloric stenosis, congenital Right hip pain Physical Therapy Inpatient Evaluation/Re-Eval M1 PT/OT-IP Prior Functional Status Start: 02/18/20 13:47 Freq: NEEDED Status: Active Protocol: Document 02/19/20 10:25 DLM (Rec: 02/19/20 12:24 DLM [id number]) Medical Review Prior Functional Status Medical History Reviewed Yes Diet/Fluid Consistency Regular Communication WNL Mobility and Gait independent gait without device, altered gait pattern due to hip pain recently Activities of Daily Living and IADL's Independent Social History Household Members significant other Living Arrangements Mobile home Number of Floors (Floors) One Floor Number of Stairs To Enter/Railing? 2 with one rail Home Environment Standard Height Toilet,Tub/ Shower Home Equipment Front Wheel Walker,Straight Cane,Raised Toilet Seat w/ Armrests,Tub Transfer Bench, Grab Bars In Shower M2 PT-IP Current Condition Start: 02/18/20 13:47 Freq: NEEDED Status: Active Protocol: Document 02/19/20 10:25 DLM (Rec: 02/19/20 12:24 DLM [id number]) Physical Therapy Current Condition Current Condition Evaluation Date 02/19/20 Treatment Diagnosis right total hip arthroplasty, impaired gait Onset Date 02/18/20 Precautions Posterior Hip Precautions No Hip Flexion > 90 degrees,No Hip Internal Rotation,No Hip Adduction Weight Bearing Status Weight Bearing Status Weight Bear as Tolerated M3 PT-IP Subjective Start: 02/18/20 13:47 Freq: NEEDED Status: Active Protocol: Document 02/19/20 10:25 DLM (Rec: 02/19/20 12:24 DL [id number]) Subjective Physical Therapy Visit Type Type Initial Evaluation Visit Start Time 09:15 Visit Stop Time 10:25 Total Visit Minutes 70 Number of PRINT PRODUCTION COORDINATOR Visits 0 Physical Therapy Visit Comments Patient Comments She is worried about hurting her hip, her S.O. plans to be home to help her as needed Patient Goals discharge home Therapy Pain Assessment Pain When Pain Assessed After Treatment Pain Present Pain Present Pain Reported Location Right Hip Intensity 4 Scale Used Numeric (0 - 10) Description Aching,Burning,Sharp Pain Behaviors Guarding,Wincing Pain Management Techniques Apply Cold,Re-positioning M4 PT-IP Mobility and Gait Start: 02/18/20 13:47 Freq: NEEDED Status: Active Protocol: Document 02/19/20 10:25 DLM (Rec: 02/19/20 12:24 DL [id number]) PT-Bed Mobility Assessment Supine to Sit Supine to Sit Standby Assistance Sit to Supine Sit to Supine Minimal Assistance Scooting Scooting to Edge of Bed Independent Scooting Up and Down in Bed Independent PT-Transfer Assessment Sit to and From Stand Sit to and from Stand Independent,Use of Upper Extremities Equipment Transfer Assistive Device Gait Belt,Front Wheeled Walker Transfers Transfer Destination Bed,Chair,Toilet Transfer Technique Stand Step Pivot Transfer Ability Level of Assist Independent,Use of Upper Extremities Comments Mobility Comments training performed for sit- stand with use of hip precautions, initially needed min assist but after training she performed safely Gait Assessment Gait Gait Assistance Required: Standby Assistance Distance (Feet) 60 Able to Maintain Weight Bearing Status Yes During Gait Assistive Devices Assistive Device Gait Belt,Front Wheeled Walker Gait Deviations General Gait Pattern Antalgic Factors Limiting Gait Function Factors Limiting Gait Function Decreased Activity Tolerance, Decreased Strength,Limited Range of Motion,Pain Comments Gait Comments training completed for gait with fWW with safe sequencing Stair Climbing Assessment Evaluation Level of Assist On Stairs Minimal Assistance,1 Person Assistance Devices Stair Climbing Assistive Devices Right Railing Technique/Endurance Stair Climbing Direction Ascend and Descend Stair Climbing Technique Step to Step Number of Steps Climbed 1 Query Text: Stair Climbing Set # Repetitions (reps) 2 Comments Stair Climbing Comments hand held assist on one side and rail on opposite side, education for sequencing PT-Balance Assessment Sitting Balance and Reactions Static Sitting Balance Ability Normal Dynamic Sitting Balance Ability Normal Standing Balance and Reactions Static Standing Balance Ability Good Dynamic Standing Balance Ability Good Device Used FWW M5 PT-IP Objective Assessments Start: 02/18/20 13:47 Freq: NEEDED Status: Active Protocol: Document 02/19/20 10:25 DLM (Rec: 02/19/20 12:24 DLM [id number]) Orientation Orientation/Cognition Level of Alertness Alert Orientation Name,Age,Birthday,Month,Date, Year,Day of Week,Place, Situation Language Function Ability No Deficits Noted Safety Awareness Understands Safety Issues Memory Description No Deficits Noted Gross Range of Motion Upper Extremity ROM Assessment Within Functional Limits Lower Extremity ROM Assessment Right Impaired Impairments pain right hip area with ROM, post-op restrictions Strength Upper Extremity Strength Assessment Within Functional Limits Lower Extremity Strength Assessment Right Impaired Hip flex 2+/5 Knee ext 3+/5 Ankle Df 5/5 Comments Strength Comments pain limits right LE Coordination Assessment Gross Coordination Gross Coordination WNL Sensation Assessment Sensation Gross Sensation WNL Muscle Tone Muscle Tone WNL Yes M6 PT-IP Treatment Start: 02/18/20 13:47 Freq: NEEDED Status: Active Protocol: Document 02/19/20 10:25 DLM (Rec: 02/19/20 12:24 DLM [id number]) Physical Therapy Treatment Exercises Exercises Ankle Pumps,Gluteal Sets,Quad Sets,Heel Slides,Supine Hip Abduction Education Education Provided Precautions,Weight Bearing Status,Post-Op Packet,Safety Equipment Issued Equipment Type and Company pt has her FWW at the hospital Other Treatments Other Treatment Performed pt up to toilet and urinated, reinforced hip precautions during toileting M7 PT-IP Assessment and Plan Start: 02/18/20 13:47 Freq: NEEDED Status: Active Protocol: Document 02/19/20 10:25 DLM (Rec: 02/19/20 12:24 DLM [id number]) PT Summary Assessment and Plan Potential Rehabilitation Potential Excellent Status of Condition at Evaluation Evolving Summary Impairments Pain,ROM,Strength,Balance,Bed Mobility,Transfers,Gait, Activity Tolerance Progress Towards Goals Safe For Discharge Assessment Summary Bhavani is progressing well today with therapy. She has intermittent increases in her pain with some movements but she is learning to alter her movement patterns to better manage her post-op pain. She demonstrates a safe gait pattern with use of her FWW. In and out of bed is the most painful and she anticipates having her S.O. assist when she first gets home. She needed assistance to complete heel slide and supine hip abduction exercises as well. She appears safe to discharge home with her S.O. to help when she is medically cleared. Goals Bed Mobility Goal Independent Transfer Goal Independent,Front Wheeled Walker Gait Goal Independent,Front Wheel Walker Gait Distance 100 feet Other Goals up and down 2 steps with min assist and rail Days to Meet Goals 1 Frequency of Treatment Frequency Of Treatment Twice a Day Treatment Plan Physical Therapy Treatment Plan Bed Mobility Training,Transfer Training,Gait Training, Therapeutic Exercise,Post Op Education,Discharge Planning, Hot or Cold Pack Recommendations To Nursing Amount of Assist Needed Standby Assistance Discharge Recommendations PT Discharge Recommendations Home with Assistance, Outpatient PT Other Discharge Recommendations pt has out-pt PT scheduled for after discharge Transportation Needs at Discharge Private Vehicle
--- NOTE | 2020-02-19 11:14 | CM.IDA ---
Initial DCP Assessment Note Pt is a 50 yo female, resident of [facility], POD #1 s/p Right SCAR with Dr. Garcia PCP: Ja Jenkins Payer: Dafne KENYON Reviewed chart, pt discussed in multidisciplinary rounds this morning. Therapy has cleared pt for return home w/family to assist and pt has planned for home, DC order from Ortho has already been initiated this morning. Patient getting up w/ PT this AM and eager to return home once cleared. No needs expected from DC planning team although will remain available in case this changes today. DESIREE Ambriz Discharge Planning/Care Management CM Discharge Assessment Start: 02/19/20 11:05 Freq: Status: Active Protocol: Document 02/19/20 11:05 DEMARIO (Rec: 02/19/20 11:14 DEMARIO [id number]) Discharge Planning Assessment Assigned Wire Spiral Binder DESIREE Paula DPOA/Assigned Designee Name Anival (S.O.) Contact Information [phone] or [phone] Advance Directives? No Advance Directives on File No History Provided By Patient,Medical Record Prior Living Arrangements Mobile home Household Members significant other Type of transporation used prior to Drives own vehicle admit Independent with ADL's Yes Is patient alert and oriented? Yes Comment Works fulltime Caregiver for Another No Patient/Family Preference OP PT Therapy Barriers to Discharge No Discharge Plan Home Transportation Arrangement SO Referrals Initiated None needed
[2020-02-19 12:00] VITALS: BP 97/67; PULSE 62; RESP 16; TEMP 37; O2SAT 90
[2020-02-19 12:38] VITALS: BP 97/67; PULSE 62
--- NOTE | 2020-02-19 13:36 | PC.NURSE ---
Day shift note: Dressing changed, applied Aqaucel. No abnormal drainage or bleeding to incisional site. Tolerated well. Awaiting for spouse to arrive at 1730 for discharge. Requesting discharge instructions until spouse arrives. IV site removed.
[2020-02-19 15:15] VITALS: BP 131/88; PULSE 81; RESP 17; TEMP 36.2; O2SAT 96
[2020-02-19] MEDS: NAPROXEN 250 MG TABLET PO (17:10)
--- NOTE | 2020-02-19 17:55 | PC.NURSE ---
Discharge note: Pt medicated for discharge @ 6448. Pt given discharge instructions with spouse at bedside. IV taken out by day shift RN. Pt given belongings. Pt taken to car via wheelchair with [facility]
== END 2020-02-19 17:50 | disposition home or self-care (01) ==
LOC: OR 06:13 → AC 09:15
PROVIDERS: PCP Family Medicine; Referring Provider Family Medicine; Visit Provider Orthopaedic Surgery
PROC: 0SR90JZ Replacement of Right Hip Joint with Synthetic Substitute, Open Approach (ICD-10-PCS; CPT 27130; principal; 2020-02-18 07:45)
DX: M16.11 Unilateral primary osteoarthritis, right hip (principal); E03.9 Hypothyroidism, unspecified; E66.9 Obesity, unspecified; I10 Essential (primary) hypertension; F32.9 Major depressive disorder, single episode, unspecified; D64.9 Anemia, unspecified; Z68.41 Body mass index [BMI] 40.0-44.9, adult
CPT/HCPCS: 27130; 36415; 72170; 85014; 85018; 94760; 94762; 97110; 97116; 97162; C1776; J1200; J1885; J2250; J2270; J2274; J2405; J2704; J2765